=== PATIENT | female | born 1935 | race Caucasian/White ===

== ENCOUNTER → 2019-05-29 | Outpatient (CLI) | payer MEDICARE ==
[~2019-05-29] MED LIST: OMNIPAQUE 350 MG/ML, 100ML BOTTLE ONE
== END | disposition home or self-care (01) ==
LOC: CFH 09:10
PROVIDERS: ATTEND Internal Medicine
DX: K76.9 Liver disease, unspecified (principal); D25.9 Leiomyoma of uterus, unspecified; K83.8 Other specified diseases of biliary tract; I70.0 Atherosclerosis of aorta; M47.815 Spondylosis without myelopathy or radiculopathy, thoracolumbar region; M85.88 Other specified disorders of bone density and structure, other site; M41.85 Other forms of scoliosis, thoracolumbar region
CPT/HCPCS: 74177; 82565; Q9967